=== PATIENT | male | born 1965 | race Caucasian/White ===

== ENCOUNTER 2016-09-08 06:46 | Day surgery (SDC) | payer BC ==
[2016-08-26 09:33] VITALS: BMI 32.0
--- NOTE | 2016-08-26 10:04 | PAT Medication Instructions ---
Service Date Aug 26, 2016. Current Home Medication List Ascorbic Acid (Vitamin C), 500 MG PO BID Pravastatin Sodium (Pravastatin Sodium), 1 TAB PO HS Medication Instructions For Your Scheduled Surgery - Hold the following medications the morning of surgery: Ascorbic Acid (Vitamin C), 500 MG PO BID - Take the following medications as scheduled the night before surgery: Pravastatin Sodium (Pravastatin Sodium), 1 TAB PO HS Ascorbic Acid (Vitamin C), 500 MG PO BID If you have any questions please call us at [phone] or [phone] ( Nancy) or [phone]
[2016-08-26 10:29] LABS: BASO % 0.9 %; BASO ABS # 0.05 K/uL (0-0.2); COMPLETE YES; EOS % 6.1 %; HEMATOCRIT 44.5 % (42-52); LYMPH % 36.3 %; LYMPH ABS # 2.09 K/uL (1.2-3.4); MEAN CELL VOLUME 91.2 fL (80-100); MEAN CORPUSCULAR HEMOGLOBIN 31.4 pg (25-34); MEAN CORPUSCULAR HGB CONC 34.4 g/dl (32-36); MEAN PLATELET VOLUME 9.4 fL (7.4-10.4); MONO % 9.6 %; NEUT % 47.1 %; PLATELET COUNT 213 K/uL (130-400); RED BLOOD COUNT 4.88 M/uL (4.7-6.1); WHITE BLOOD COUNT 5.75 K/uL (4.8-10.8)
[2016-08-26 10:53] LABS: BUN/CREATININE RATIO 17.5 (10-20); CALCIUM 9.1 mg/dl (8.5-10.1); CREATININE 1.2 mg/dl (0.60-1.40); POTASSIUM 4.4 mmol/L (3.5-5.1)
[~2016-09-08] VITALS: Ht 185.4 cm; Wt 110.0 kg
[~2016-09-08 06:46] MED LIST: ASCO1CAP3 PO; CEFAZOLIN 2000 MG/60 ML D5W IV SCH; HEPARIN SOD 5000 UNIT/0.5 ML CARP SQ SCH; LACTATED RINGER'S 1000ML 1,000 ML IV SCH; PRAV80TA2 PO
[2016-09-08 07:10] VITALS: BP 112/74; PULSE 64; TEMP 36.8; O2SAT 96; Ht 185.4 cm; Wt 110.0 kg
[2016-09-08] MEDS ORDERED: HEPARIN SOD 5000 UNIT/0.5 ML CARP ONE (07:50)
[2016-09-08] MEDS ORDERED: SUCCINYLCHOLINE 100MG/5ML SYR IV ONE (07:57)
[2016-09-08] MEDS ORDERED: PROPOFOL IV EMULSION 10 MG/ML 20 ML VIAL IV ONE (07:57)
--- NOTE | 2016-09-08 07:57 | History & Physical Bridge Note ---
H&P Re-Evaluation Bridge Note: I have examined the patient, reviewed the History & Physical and in the interval since the performance of the History & Physical I have noted the following changes of clinical significance: No changes noted
[2016-09-08] MEDS ORDERED: MIDAZOLAM HCL 1 MG/ML 2ML VIAL ONE (07:58)
[2016-09-08] MEDS ORDERED: FENTANYL CITRATE INJ 50 MCG/1 ML 2 ML VIAL ONE ×2 (07:58→08:58)
[2016-09-08] MEDS ORDERED: HYDR-5688 PO (07:58)
[2016-09-08] MEDS ORDERED: CISATRACURIUM BESYLATE IV SOLN 2 MG/ML 10 ML VIAL ONE (08:01)
[2016-09-08] MEDS ORDERED: DEXAMETHASONE SOD INJ 4 MG/ML VIAL ONE (08:47)
[2016-09-08] MEDS ORDERED: ONDANSETRON INJ 2 MG/ML 2 ML VIAL ONE (08:47)
[2016-09-08] MEDS ORDERED: BUPIVACAINE/EPINEPHRINE 0.5% MPF 1:200,000 30 ML VIAL INJ ONE (09:15)
[2016-09-08] MEDS ORDERED: GLYCOPYRROLATE INJ 0.2 MG/ML VIAL ONE (09:18)
[2016-09-08] MEDS ORDERED: SODIUM CHLORIDE 0.9% 1000ML 1,000 ML IV SCH (09:34)
--- NOTE | 2016-09-08 09:37 | [facility] Operative Report ---
Operative Report Operative Date Sep 08, 2016. Pre-Operative Diagnosis Recurrent Right Inguinal Hernia Post-Operative Diagnosis 1. RLQ adhesions 2. recurrent right inguinal hernia. direct. Procedure(s) Performed diagnostic laparoscopy, enterolysis, repair of recurrent RIH with mesh Surgeon Dr. Isaias Reed Electrical Control Assembler Surgeon(s) None Estimated Blood Loss 5ml Findings RLQ adhesions direct RIH Specimens No Specimen Complication(s) None Disposition Recovery Room / PACU I attest to the content of the Intraoperative Record and any orders documented therein. Any exceptions are noted below.
[2016-09-08] MEDS ORDERED: HYDROmorphone INJ 1 MG/ML SYR IV PRN (09:45)
[2016-09-08] MEDS ORDERED: IBUPROFEN 600 MG TAB PO PRN (09:45)
[2016-09-08] MEDS ORDERED: ATROPINE SULFATE 0.1 MG/ML 5ML SYR IV PRN (09:45)
[2016-09-08] MEDS ORDERED: HYDROCODONE/ACETAMOPHEN 5/325MG TAB PO PRN ×2 (09:45)
[2016-09-08] MEDS ORDERED: EpHEDrine SULFATE INJ 50 MG/ML AMP IV PRN (09:45)
[2016-09-08] MEDS ORDERED: KETOROLAC TROMETHAMINE 30 MG/ML VIAL IV. PRN (09:45)
[2016-09-08] MEDS ORDERED: LABETALOL HCL IV 5 MG/ML 20ML IV PRN (09:45)
[2016-09-08] MEDS ORDERED: MoRPHine SULFATE 4 MG/ML 1 ML CARP\\VIAL IV PRN (09:45)
[2016-09-08] MEDS ORDERED: MoRPHine SULFATE 2 MG/ML CARP IV PRN (09:45)
[2016-09-08] MEDS ORDERED: FLUMAZENIL 0.1 MG/1 ML 10 ML VIAL IV PRN (09:45)
[2016-09-08] MEDS ORDERED: PROMETHAZINE HCL INJ 12.5 MG in SODIUM CHLORIDE 0.9% 50ML 50 ML IV PRN (09:45)
[2016-09-08] MEDS ORDERED: ONDANSETRON INJ 2 MG/ML 2 ML VIAL IV PRN (09:45)
[2016-09-08] MEDS ORDERED: NALOXONE HCL 0.4 MG/1 ML VIAL/CARP IV PRN (09:45)
[2016-09-08] MEDS ORDERED: HYDROmorphone INJ 1 MG/ML SYR ONE (09:48)
--- NOTE | 2016-09-08 09:53 | OPERATIVE REPORT ---
DATE OF OPERATION: 09/08/2016 PREOPERATIVE DIAGNOSIS: Right groin pain and recurrent inguinal hernia on ultrasound. POSTOPERATIVE DIAGNOSES 1. Right lower quadrant adhesions. 2. Recurrent direct inguinal hernia. PROCEDURE: Diagnostic laparoscopy with enterolysis and repair of recurrent inguinal hernia with mesh. SURGEON: Dr. Reed. ESTIMATED BLOOD LOSS: Approximately 5 mL. COMPLICATIONS: No immediate complications. ANESTHESIA: General. The patient tolerated the procedure well. OPERATIVE NOTE: After informed consent was obtained, the patient was taken to the operating suite and placed in a supine position. After successful intubation a Carlos catheter was placed. The left arm was tucked and the lower abdomen was shaved and sterilely prepped and draped in the usual fashion. An infraumbilical incision was made with an 11 blade scalpel and carried down through the soft tissue using electrocautery. The anterior rectus fascia was opened using electrocautery and two #0 Vicryl stay sutures were placed. Peritoneum was elevated with hemostats and incised under direct vision using a Metzenbaum scissor. A finger sweep was performed, and a 12 mm [place] trocar was placed. The abdomen was insufflated to 18 mmHg. Laparoscope was inserted and the abdomen was examined 360 degrees. We immediately noted some adhesions in the right lower groin area. I placed 2 left mid abdominal 5 mm trocars under direct vision. The patient was placed in Trendelenburg position and slightly airplaned to the left. The adhesions were stuck right to the area of previous hernia repair. They involved some of the sigmoid colon, as well as mesentery of the small bowel. This was taken down using blunt dissection, as well as small amounts of electrocautery. Once this was cleared, at first I did not think there was a hernia. With some slight dissection, because of the finding on the ultrasound, I was able to find a direct defect on the medial side of the cord structures. There was nothing incarcerated within it. After I dissected out the hernia sac. There was no evidence of an indirect hernia. I used a piece of Surgimesh with silicone barrier as an onlay. I tacked it using a ProTack device staying above the iliopubic tract laterally. I put 1 tack in the pub medially and 1 tack into the abdominal wall anteriorly. This covered the defect nicely. There was adequate hemostasis. No other abnormalities were identified. I watched as the mesh tacoed upon itself as we deflated the abdomen. The trocars were all removed and the abdomen was completely desufflated. We then closed the fascia with 0 Vicryl in a [id number] fashion. The wounds were all irrigated and closed using 4-0 Monocryl. Marcaine was injected around the incisions for postoperative analgesia and skin glue used as a dressing. The patient was awakened, extubated, and transferred to recovery in stable condition. I attest to the content of the Intraoperative Record and any orders documented therein. Any exceptio ns are noted below.
--- NOTE | 2016-09-08 10:13 | Anesthesiology Progress Note ---
Anesthesia Post Op Note Date & Time Sep 08, 2016 at 10:12 Vital Signs Pain Intensity: 0 Vital Signs Past 12 Hours Date Time Temp Pulse Resp B/P Pulse Ox O2 Delivery O2 Flow Rate FiO2 09/08/16 09:58 49 18 09/08/16 09:58 52 18 109/75 87 09/08/16 09:53 55 12 09/08/16 09:53 54 12 110/78 97 09/08/16 09:48 54 15 09/08/16 09:48 53 15 110/73 95 09/08/16 09:43 55 17 09/08/16 09:43 55 17 128/82 97 09/08/16 09:43 36.1 58 18 131/83 96 Mask 10 09/08/16 07:10 36.8 64 18 112/74 96 Room Air Notes Mental Status: alert / awake / arousable, participated in evaluation Pt Amnestic to Procedure: Yes Nausea / Vomiting: adequately controlled Pain: adequately controlled Airway Patency, RR, SpO2: stable & adequate BP & HR: stable & adequate Hydration State: stable & adequate Anesthetic Complications: no major complications apparent
[2016-09-08 10:30] VITALS: BP 119/73; PULSE 54; TEMP 36.9; O2SAT 98
[2016-09-08 11:00] VITALS: BP 107/73; PULSE 56; TEMP 36.4; O2SAT 94
[2016-09-08 11:25] VITALS: BP 111/69; PULSE 53; TEMP 36.9; O2SAT 96
== END 2016-09-08 11:36 | disposition home or self-care (01) ==
LOC: C.ACU 06:46
PROVIDERS: ATTEND Surgery
DX: K40.90 Unilateral inguinal hernia, without obstruction or gangrene, not specified as recurrent (principal); K66.0 Peritoneal adhesions (postprocedural) (postinfection); K57.30 Diverticulosis of large intestine without perforation or abscess without bleeding; R31.9 Hematuria, unspecified; E78.5 Hyperlipidemia, unspecified

== ENCOUNTER → 2017-05-19 | Outpatient (CLI) | payer BC ==
[~2017-05-19] MED LIST changes: -CEFAZOLIN 2000 MG/60 ML D5W IV SCH; -HEPARIN SOD 5000 UNIT/0.5 ML CARP SQ SCH; -LACTATED RINGER'S 1000ML 1,000 ML IV SCH
[2017-05-19 17:06] LABS: CHOLESTEROL/HDL RATIO 4.7
== END | disposition home or self-care (01) ==
LOC: C.LABBFT 13:41
PROVIDERS: ATTEND Physician Assistant Medical
DX: Z00.00 Encounter for general adult medical examination without abnormal findings (principal)

== ENCOUNTER 2024-04-24 07:49 | Inpatient (IN) ==
--- NOTE | 2024-04-16 09:11 | Anesthesiology Consultation ---
Date of Service April 16, 2024 Assessment & Plan Chart Review Chart Review: Acceptable Risk for Surgery and Patient NOT seen in Pre Admission Testing Consults Requested none ASA ASA3 Proposed Anesthesia Anesthesia Type: General History Surgery Operation Date: 04/24/24 10:55 Proposed Procedures p L3-S1 Decompression and Fusion with Spinal Cord Monitoring - Isidro Smith DO Height/Weight Height: 5 ft 11 in Weight: 117.934 kg Allergies Allergy/AdvReac Type Severity Reaction Status Date / Time No Known Drug Allergies Allergy Verified 04/15/24 15:02 Medications Home Medications Medication Instructions Recorded Confirmed Last Taken aspirin 81 mg tablet,delayed 81 mg PO QAM 04/30/19 04/15/24 09/15/19 release omeprazole 20 mg tablet,delayed 20 mg PO QAM 04/15/24 04/15/24 Unknown release rosuvastatin 20 mg tablet 20 mg PO QAM 04/15/24 04/15/24 Unknown Past Medical History Medical History Hx of renal calculi no surgery needed, passed on its own Hx of colonic polyp Pre-diabetes pt denies Spinal stenosis of lumbar region Degenerative disc disease Chronic back pain Osteoarthritis Carotid stenosis, left greater than 75% left external carotid artery stenosis - reason for aspirin (rx by PCP) GERD (gastroesophageal reflux disease) Cervical spinal stenosis Hyperlipidemia Anxiety pt denies ASCVD aorta and carotids obese + tobacco smoker Exercise / Class Metabolic Activity III < 4 Walking/Shop/Light housework Past Family History Family History Grandfather (Paternal) Myocardial infarction Brother Diabetes Hyperlipidemia Mother Diabetes Hypertension Family/Other Cancer Other No family history of adverse response to anesthesia Denies family history of Ovarian cancer Prostate cancer Breast cancer Colorectal cancer Past Surgical History Surgical History History of esophagogastroduodenoscopy (EGD) S/P cervical spinal fusion unsure of levels. done at [facility]. Full ROM History of colonoscopy History of appendectomy H/O inguinal hernia repair right side X3, last hernia repair with mesh Past Anesthesia History No Hx of Anesthesia Complications and No Family Hx of Anesthesia Complications History of PONV No Hx of PONV and No Hx of Motion Sickness Social History Smoking Status: Current every day smoker tobacco type: cigarettes Smoking cigarettes per day: 1 ppd x 40 years (advised on NPO policy) Do You Dip or Chew Tobacco: No Hx Alcohol Use: Yes Alcohol type: beer alcohol intake frequency: a few times a month Hx Substance Use: No substance use type: does not use Testing Electrocardiogram Date: 04/11/24 Findings: + NSR @ (@ 64) Chest X-Ray Date: 04/11/24 Findings: + NAD and + atherosclerosis of thoracic aorta Other Testing 05/13/2019 Neck CTA-LECA -> 75%;JUNIOR-< 25%
[2024-04-24] MEDS: LR 15ML/HR IV SCH (08:30)
[2024-04-24] MEDS: LR 60ML/HR IV SCH (08:30)
[2024-04-24] MEDS: ACETAMINOPHEN 500 MG TAB PO SCH (08:31)
[2024-04-24] MEDS: CeleBREX 200 MG CAP PO SCH (08:31)
[2024-04-24] MEDS: GABAPENTIN 600 MG DOSE PO SCH (08:31)
[2024-04-24] MEDS ORDERED: fentaNYL citrate PF 100 MCG/2 ML VIAL ONE ×2 (08:35→12:33)
[2024-04-24] MEDS ORDERED: SUGAMMADEX SODIUM 200 MG/2 ML VIAL IV ONE (08:35)
[2024-04-24] MEDS ORDERED: LIDOCAINE 2% 2 ML VIAL/AMP(20MG/ML) INFIL ONE (08:35)
[2024-04-24] MEDS ORDERED: PROPOFOL IV EMULSION 10 MG/ML 20 ML VIAL IV ONE (08:35)
[2024-04-24] MEDS ORDERED: ONDANSETRON INJ 2 MG/ML 2 ML VIAL ONE (08:35)
[2024-04-24] MEDS ORDERED: MIDAZOLAM HCL 1 MG/ML 2ML VIAL ONE (08:35)
[2024-04-24] MEDS ORDERED: ROCURONIUM BROMIDE 10 MG/ML 5 ML VIAL IV ONE ×2 (08:35→11:45)
[2024-04-24] MEDS ORDERED: DEXAMETHASONE SOD INJ 4 MG/ML VIAL ONE (08:35)
[2024-04-24] MEDS ORDERED: ONDANSETRON INJ 2 MG/ML 2 ML VIAL IV PRN ×2 (09:05→18:28)
[2024-04-24] MEDS ORDERED: fentaNYL citrate PF 100 MCG/2 ML VIAL IV PRN (09:05)
[2024-04-24] MEDS ORDERED: ePHEDrine sulfate 50 MG/ML AMP IV PRN (09:05)
[2024-04-24] MEDS ORDERED: ATROPINE SULFATE 0.1 MG/ML 10ML SYR IV PRN (09:05)
--- NOTE | 2024-04-24 09:57 | History & Physical Bridge Note ---
Date of Service April 24, 2024 History & Physical Bridge Note I have examined the patient, reviewed the History & Physical and in the interval since the performance of the History & Physical I have noted the following changes of clinical significance: no changes noted
--- NOTE | 2024-04-24 09:58 | History & Physical Report ---
Date of Service April 24, 2024 Assessment & Plan (1) Spinal stenosis of lumbar region: Plan: L3-S1 decompression and fusion History of Present Illness Chief Complaint: Back and bilateral leg pain Primary Care Provider: Rustam Rhoades DO This is a 58-year-old male presents with chronic persistent back and leg pain after failing course of nonoperative care is here for surgical invention. Allergies Allergy/AdvReac Type Severity Reaction Status Date / Time No Known Drug Allergies Allergy Verified 04/24/24 08:21 Home Medications Medication Instructions Recorded Confirmed Type aspirin 81 mg tablet,delayed 81 mg PO QAM 04/30/19 04/24/24 History release omeprazole 20 mg tablet,delayed 20 mg PO QAM 04/15/24 04/24/24 History release rosuvastatin 20 mg tablet 20 mg PO QAM 04/15/24 04/24/24 History Past Med/Surg History Problem List Spinal stenosis of lumbar region Lumbar radiculopathy Lumbar spondylolysis Anterolisthesis of lumbar spine Lumbar degenerative disc disease Greater trochanteric pain syndrome Arthritis of sacroiliac joint of both sides Osteoarthritis of hips, bilateral Olecranon bursitis Constipation Wellness examination Olecranon bursitis, left elbow (Acute) Change in multiple pigmented skin lesions Prediabetes (Chronic) Tubular adenoma of colon (Acute) Papilloma of eyelid (Acute) Left carotid bruit (Acute) Tobacco use disorder 1-1/2 to 2 ppd Hyperlipidemia (Chronic) Medical History Hx of renal calculi Hx of colonic polyp Pre-diabetes Spinal stenosis of lumbar region Degenerative disc disease Chronic back pain Osteoarthritis Carotid stenosis, left GERD (gastroesophageal reflux disease) Cervical spinal stenosis Hyperlipidemia Anxiety Surgical History History of esophagogastroduodenoscopy (EGD) S/P cervical spinal fusion History of colonoscopy History of appendectomy H/O inguinal hernia repair Family History Grandfather (Paternal) Myocardial infarction Brother Diabetes Hyperlipidemia Mother Diabetes Hypertension Family/Other Cancer Other No family history of adverse response to anesthesia Denies family history of Ovarian cancer Prostate cancer Breast cancer Colorectal cancer Social History Smoking Status: Current every day smoker Tobacco Type: Cigarettes Age Started Using Tobacco: 11; packs per day: 1.5; Cigarettes Per Day: 1 ppd x 40 years (advised on NPO policy); Second Hand Exposure: Yes; Do You Dip or Chew Tobacco: No; Tobacco Cessation Education Requested by Patient: No Hx Alcohol Use: Yes Alcohol type: beer Hx Substance Use: No Preferred Language: Korean Communication Ability: Effective Visual Impairment: No Limitations Hearing Ability: Normal Servicenow Administrator Required: No Beliefs That Will Affect Care: None marital status: div Current Living Situation: Significant Other current occupational status: employed current occupation: [employer] Other Information That Helps Us Care for You: No Feels Safe at Home: Yes Safety Concerns: Feels Safe At This Time Childhood Exposure to Second-Hand Smoke: No Diet: regular Dental Care, Regularly: Yes Physical Activity Frequency: Does not Exercise Assistive Devices: None Assistive Devices Comment: dental implant top front x1 Physical Exam Physical Exam: Patient is alert and oriented heart regular in rhythm lungs clear Results & Data Results & Data Vital Signs (Past 12 Hours) Vital Signs Temp Pulse Resp BP Pulse Ox O2 Del Method 04/24/24 08:23 36.6 C 63 18 139/78 96 Room Air
[2024-04-24] MEDS: ceFAZolin 2000MG 2,000 MG/15 ML SYR IV SCH ×2 (10:55→21:03)
[2024-04-24] MEDS: ceFAZolin 330 MG/ML 1 GM VIAL ONE (11:04)
[2024-04-24] MEDS: BUPIVACAINE/EPINEPHRINE 0.25% 1:200,000 30 ML VIAL ONE (11:04)
[2024-04-24] MEDS: FLOSEAL HEMOSTATIC MATRIX 10ML TOP ONE (13:36)
--- NOTE | 2024-04-24 13:49 | Operative Report ---
Post Operative Report Pre & Post Diagnosis Operation Date: 04/24/24 09:35 Pre-Op Diagnosis: Lumbar Disc Herniation with Radiculopathy Spondylolisthesis L5-S1 Lumbar spinal stenosis with neurogenic claudication Obesity Post-Op Diagnosis: Same I identified the patient and participated in the time-out.: Yes Procedure Operation Date: 04/24/24 09:35 Actual Procedures #1 lumbar decompression with bilateral medial facetectomies and foraminotomies L2-L3, L3-L4 L4-5 L5-S1. #2 posterior spinal fusion L3-S1. #3 placed posterior segmental instrumentation L3-S1. #4 interbody fusion L3-L4, L4-5 and L5-S1. #5 placement Spira 15 x 26 mm at L3-L4, 16 x 26 mm x 2 at L4-5 and 14 x 26 mm x 2 at L5-S1. #6 placement locally harvested morselized autograft and posterior gutters. #7 placement infuse collagen sponge combined with Koros in the posterior gutters and os design interbody space. #8 placement of versa wrap over the exposed dura. #9 excision of extradural mass L5-S1. Surgeon Isidro Smith, DO Instructor Industrial Design Kamini Chavira Estimated Blood Loss 1,000 Findings See Below The patient is 511 weighing 119 kg with a BMI in excess of 36 this combined with an EBL of excess of 1000 cc created significant technical difficulty from positioning exposure and the procedure itself and at least 50% increased operative time. I am recommending a modifier 22 on this patient. Specimens None Indications This is a 58-year-old male who presents problems diagnosis of failing since course of nonoperative care is here for surgical invention. Description of Procedure Patient was met with identified informed consent obtained. Patient was then taken to the operative suite underwent ablation placed in a prone position on the Jeremy table on top of the Malachi frame. All bony promises well-padded eyes inspected to ensure no external precipice spinal. This point the lumbar spine was prepped and draped in normal sterile fashion. Sharp dissection with the assistance of Bovie cautery was formed down to and exposing the lamina and transverse processes of L3-L4-L5 and the sacral ala bilaterally. Obvious bilateral pars defect noted L5 bilaterally. I then performed a complete laminectomy of L5 including bilateral medial facetectomies and foraminotomies as well as addressing bilateral extradural facet cyst extending out in the foramen. Then performed a complete laminectomy of L4 with bilateral medial facetectomies and foraminotomies. Then a complete laminectomy of L3 with bilateral medial facetectomies and foraminotomies. This did include excision of foraminal extraforaminal disc herniation on the right. lastly partial laminectomy L2 with bilateral medial facetectomies addressing all subarticular stenosis. Pedicle screws were then placed in L3-L4-L5 and S1 levels bilaterally with assistance of fluoroscopy in the process kelly contoured and placed. By way to transfer approach on the right a discectomy of L5-S1 was performed endplates guided to subcortical bleeding bone and a 14 x 26 mm Spira cage filled os designed tapped in position. Then proceeded to the left transforaminal region at L5-S1 completed the discectomy curetted the endplates to subcortical bleeding bone and placed a second 14 x 26 mm Spira cage with os design into position. I then approached L4-[address] transforaminal approach and right a discectomy performed endplates guided to subcortical bleeding bone and a 16 x 26 mm spiral cage filled with os design tapped in position. Then proceeded to the left transforaminal region at L4-L5. Discectomy performed endplates guided to subcortical bleeding bone and a second 16 x 26 mm Spira cage with os designed tapped into position. Lastly approached L3-L4 by way of a transforaminal approach on the right a complete discectomy was performed endplates guided to subcortical bleeding bone and the 15 x 26 mm Spira cage filled with os designed tapped into position. Rods were then compressed locked into final position bilaterally. The transverse processes of L3-L4-L5 and sacral ala burred to subcortical bleeding bone. Infuse collagen sponge combined with Koros and local autograft placed in posterior lateral gutters. Versa wrap placed over the exposed dura. 15 round THEA drain inserted. The incision was then closed with 1 Vicryl in the fascia 2-0 Vicryl subcutaneously and 4 Monocryl for final skin closure. Steri-Strips and sterile dressing placed. Patient waken taken to PACU stable condition. Please note spinal cord monitoring was utilized at the procedure no changes noted. Charles Chavira was present out the entire procedure and on the patient positioning complex portion of the surgery and final skin closure. Im ordering 20 grams of Triple Beyer Collagen Powder ([id number]) to treat an incision wound that was caused by a spine procedure. The incision is approximately 2 cm(W) x 4 cm(L) into the joint (D) in size and is a full thickness wound. Triple Beyer collagen comes in 1 gram packets so 20 packets were ordered. Given the size of the wound, with light to moderate exudate I chose to order a 20 day supply. The patient will be provided instructions for proper application of the collagen wound kit. The patient will be asked to apply the collagen powder daily and then cover it with sterile dressings dispensed. Collagen was selected as I expect the collagen to attract monocytes and fibroblasts, act as a sacrificial substrate for MMPs, and ultimately proved a matrix for tissue and vessel growth. The collagen will act as a primary dressing in this scenario. It is medically necessary for proper healing of these wounds to improve bioavailability and contact with each wound surface, this is also to help prevent infection of wounds and promote healing ultimately leading to a better healing outcome and limit the risk of infection... I attest to the content of the Intraoperative Record and any orders documented therein. Any exceptions are noted below.
--- NOTE | 2024-04-24 14:00 | Fluoroscopy Report ---
FL lumbar spine 2-3V CLINICAL HISTORY: L3-S1 DECOMPRESSION AND FUSION COMPARISON STUDY: Lumbar spine MRI February 21, 2024. FLUOROSCOPY TIME: 32 seconds. Ka,r: 30.12 mGy FLUOROSCOPIC IMAGES: 3 FINDINGS: Fluoroscopy was provided during L3-S1 decompression and fusion with discectomy. Hardware is intact. There are no unexpected radiopaque foreign bodies. IMPRESSION: Fluoroscopy was provided during L3-S1 decompression and fusion. ACT 112: Negative or not required by law. Electronically signed by: Bright Smith M.D. 04/24/2024 1:59 PM
[2024-04-24] MEDS ORDERED: PHENYLEPHRINE 100MCG/ML 5ML SYR IV PRN (14:46)
[2024-04-24] MEDS ORDERED: ALBUMIN HUMAN 5% 12.5 GM/250 ML VIAL IV ONE (14:51)
[2024-04-24] MEDS: ALBUMIN 5% 250 ML IV ONE ×3 (14:56→18:46)
[2024-04-24] MEDS ORDERED: DO NOT ADMINISTER PNEUMOCOCCAL VACCINE PRN (18:28)
[2024-04-24] MEDS ORDERED: DO NOT ADMINISTER FLU VACCINE PRN (18:28)
[2024-04-24] MEDS ORDERED: PROMETHAZINE 12.5 MG/50.5 ML BAG IV PRN (18:28)
[2024-04-24] MEDS ORDERED: METOCLOPRAMIDE HCL INJ 5 MG/ML 2 ML VIAL IV PRN (18:28)
[2024-04-24] MEDS ORDERED: HYDROmorphone INJ 1 MG/ML SYRINGE IV PRN (18:28)
[2024-04-24] MEDS ORDERED: diphenhydrAMINE Capsule 25 MG CAP PO PRN (18:28)
[2024-04-24] MEDS ORDERED: traMADol HCL 50 MG TABLET PO PRN (18:28)
[2024-04-24] MEDS ORDERED: ONDANSETRON 4 MG OD TAB PO PRN (18:28)
[2024-04-24] MEDS ORDERED: ALUMINUM/MAGNESIUM SUSP 30 ML UDC PO PRN (18:28)
[2024-04-24] MEDS ORDERED: HYDROmorphone INJ 0.5 MG/0.5 ML SYR IV PRN (18:28)
[2024-04-24] MEDS ORDERED: ACETAMINOPHEN 1,000 MG/100 ML VIAL IV PRN (18:28)
[2024-04-24] MEDS ORDERED: MAGNESIUM HYDROXIDE SUSP 30 ML UDC PO PRN (18:28)
[2024-04-24] MEDS ORDERED: bisacodyL 10 MG SUPP PR PRN (18:28)
[2024-04-24] MEDS ORDERED: NALOXONE HCL 0.4 MG/1 ML VIAL/CARP IV PRN (18:28)
[2024-04-24] MEDS ORDERED: LORazepam 0.5 MG TAB PO PRN (18:28)
[2024-04-24] MEDS ORDERED: FAMOTIDINE 20 MG TAB PO PRN (18:28)
[2024-04-24] MEDS ORDERED: LORazepam 2 MG/1 ML VIAL IV PRN (18:28)
[2024-04-24] MEDS ORDERED: SOD PHOSPHATE/SOD BIPHOSPHATE ENEMA 132 ML BTL PR PRN (18:28)
[2024-04-24] MEDS: LACTATED RINGER'S 1,000 ML IV SCH (18:50)
--- NOTE | 2024-04-24 19:20 | Anesthesiology Progress Note ---
Date of Service April 24, 2024 Anesthesia Post Procedure Vital Signs Vital Signs: Temp Pulse Pulse Resp BP Pulse Ox O2 Del Method 04/24/24 18:55 36.6 C 91 H 16 144/74 H 96 Room Air 04/24/24 18:21 36.4 C L 73 16 128/79 97 Room Air 04/24/24 18:05 68 18 120/67 96 Room Air 04/24/24 17:55 67 16 103/67 96 Room Air 04/24/24 17:45 75 14 110/57 L 97 Room Air 04/24/24 17:35 78 18 116/73 98 Room Air 04/24/24 17:30 71 20 106/65 96 Room Air 04/24/24 17:25 67 16 99/62 L 97 Room Air 04/24/24 17:15 36.3 C L 75 14 102/66 96 Room Air 04/24/24 17:05 73 13 97/66 L 96 Room Air 04/24/24 16:55 66 12 91/59 L 96 Room Air 04/24/24 16:45 75 16 95/61 L 97 Room Air 04/24/24 16:40 75 16 87/52 L 97 Room Air 04/24/24 16:35 77 14 102/62 95 Room Air 04/24/24 16:30 93/62 L 04/24/24 16:25 71 18 100/67 96 Room Air 04/24/24 16:15 77 13 100/60 95 Room Air 04/24/24 16:10 92/57 L 04/24/24 16:05 68 16 89/60 L 93 Room Air 04/24/24 15:55 71 12 98/60 L 95 Room Air 04/24/24 15:50 73 16 86/63 L 94 Room Air 04/24/24 15:45 67 14 93/60 L 96 Room Air 04/24/24 15:40 77 14 113/68 96 Room Air 04/24/24 15:35 66 13 98/60 L 96 Room Air 04/24/24 15:30 97/66 L 04/24/24 15:25 76 13 98/73 L 98 Nasal Cannula 04/24/24 15:20 77 17 98/74 L 98 Nasal Cannula 04/24/24 15:15 77 18 91/62 L 99 Nasal Cannula 04/24/24 15:05 74 19 109/70 99 Nasal Cannula 04/24/24 14:55 71 16 96/65 L 95 Nasal Cannula 04/24/24 14:50 95/63 L 04/24/24 14:45 66 16 90/62 L 96 Nasal Cannula 04/24/24 14:40 84/58 L 04/24/24 14:35 36.3 C L 75 18 96/62 L 95 Nasal Cannula 04/24/24 14:25 84 17 112/87 96 Nasal Cannula 04/24/24 14:15 77 15 102/61 96 Nasal Cannula 04/24/24 14:09 36.2 C L 74 14 106/66 95 Nasal Cannula 04/24/24 08:23 36.6 C 63 18 139/78 96 Room Air O2 Flow Rate 04/24/24 18:55 04/24/24 18:21 04/24/24 18:05 04/24/24 17:55 04/24/24 17:45 04/24/24 17:35 04/24/24 17:30 04/24/24 17:25 04/24/24 17:15 04/24/24 17:05 04/24/24 16:55 04/24/24 16:45 04/24/24 16:40 04/24/24 16:35 04/24/24 16:30 04/24/24 16:25 04/24/24 16:15 04/24/24 16:10 04/24/24 16:05 04/24/24 15:55 04/24/24 15:50 04/24/24 15:45 04/24/24 15:40 04/24/24 15:35 04/24/24 15:30 04/24/24 15:25 2 04/24/24 15:20 2 04/24/24 15:15 2 04/24/24 15:05 2 04/24/24 14:55 2 04/24/24 14:50 04/24/24 14:45 2 04/24/24 14:40 04/24/24 14:35 4 04/24/24 14:25 4 04/24/24 14:15 4 04/24/24 14:09 4 04/24/24 08:23 Pain Intensity Back: Pain Intensity: 2 Transfer of Care Handoff Completed per policy Notes Mental Status: alert / awake / arousable Patient Amnestic to Procedure: Yes Nausea / Vomiting: adequately controlled Pain: adequately controlled Airway Patency, RR, SpO2: stable & adequate BP & HR: stable & adequate Hydration State: stable & adequate Anesthetic Complications: no major complications apparent and Pt Satisfied with anesthetic care
[2024-04-24] MEDS: DOCUSATE SODIUM/SENNA 50/8.6MG TAB PO SCH (21:15)
[2024-04-24] MEDS: ACETAMINOPHEN 500 MG TAB PO PRN (21:15)
[2024-04-24] MEDS: oxyCODONE HCL IR 5 MG TAB (IMMEDIATE RELEASE) PO PRN (23:33)
[2024-04-25] MEDS: POLYETHYLENE (MIRALAX) 17 GM PACK PO SCH (06:35)
[2024-04-25] MEDS: PANTOprazole 40 MG TAB PO SCH (07:54)
[2024-04-25] MEDS: ASPIRIN 81 MG ECTAB PO SCH (07:54)
[2024-04-25] MEDS: dexAMETHasone 6 MG in SYRINGE 0 ML IV SCH (07:54)
[2024-04-25] MEDS: ROSUVASTATIN CALCIUM 20 MG TAB PO SCH (07:54)
[2024-04-25 08:34] LABS: Basophils # (auto) 0.01 K/uL (0.00-0.20); Basophils % (auto) 0.1 %; Hematocrit (blood only) 32.5 % (42.0-52.0); Hemoglobin 10.9 g/dl (14.0-18.0); Immature Granulocytes # (auto) 0.11 K/uL (0.01-0.20); Immature Granulocytes % (auto) 0.7 %; Lymphocytes # (auto) 1.86 K/uL (1.20-3.40); Lymphocytes % (auto) 11.7 %; Mean Corpuscular Hemoglobin 30.9 pg (25.0-34.0); Mean Corpuscular Hgb Conc 33.5 g/dL (32.0-36.0); Mean Corpuscular Volume 92.1 fL (80.0-100.0); Mean Platelet Volume 9.5 fL (9.4-12.4); Monocytes # (auto) 1.23 K/uL (0.11-0.59); Monocytes % (auto) 7.7 %; Neutrophils # (auto) 12.73 K/uL (1.40-6.50); Neutrophils % (auto) 79.8 %; Platelet Count 185 K/uL (130-400); RDW Coefficient of Variation 12.6 % (11.5-14.5); RDW Standard Deviation 42.5 fL (36.4-46.3); Red Blood Count 3.53 M/uL (4.70-6.10); White Blood Count 15.94 K/ul (4.8-10.8)
[2024-04-25 08:44] LABS: BUN Creatinine Ratio 16.2 (10-20); Calcium 8.7 mg/dl (8.6-10.3); Creatinine Clr Calc Pharmacy 105.4 ml/min; Est GFR (African American) 96.2 ml/min; Potassium 4.3 mmol/L (3.5-5.1)
--- NOTE | 2024-04-25 08:46 | Orthopedic Progress Note ---
Date of Service April 25, 2024 Assessment & Plan (1) Spinal stenosis of lumbar region: Plan: Juan M is postoperative day 1 status post L3-S1 decompression and fusion. Maintain THEA drain. DVT prophylaxis is in the form teds and SCDs. Continue with pain control. Work on aggressive bowel regimen. Will start physical therapy and ambulation today. Anticipate discharge home within the next couple of days. Admission and Anticipated Discharge Date Admission Date: April 24, 2024 Subjective Juan M is postoperative day 1 status post L3-S1 decompression and fusion. He had an uneventful evening. Pain is improved. THEA drain output last shift was 160 cc. H&H are 10.9 and 36.3 this morning. Review of Systems Review of Systems: All systems reviewed & are unremarkable except as noted in HPI & below Physical Exam Physical Exam: He sitting up in a chair eating breakfast in no acute distress alert and oriented x 3 lumbar dressing is clean dry and intact with functioning THEA drain calf soft nontender bilateral lower extremities strength intact bilateral lower extremities Results & Data Vital Signs (Past 12 Hours) Vital Signs Temp Pulse Resp BP BP Pulse Ox O2 Del Method 04/25/24 08:02 36.8 C 69 18 110/75 94 Room Air 04/25/24 03:39 36.5 C 84 18 127/66 97 Room Air 04/24/24 23:20 36.3 C L 88 18 100/62 95 Room Air 04/24/24 21:20 36.5 C 75 18 116/70 95 Room Air
--- NOTE | 2024-04-25 23:28 | Hospitalist Consultation ---
Date of Consultation April 25, 2024 Assessment & Plan (1) Spinal stenosis of lumbar region: Per primary service DVT proph per primary service. Acute blood loss anemia. Hemoglobin dropped from 13 to 10.9 will continue to monitor. vitals are stable. (2) Hyperlipidemia: Resume home meds History of Present Illness Reason for Consultation: medical management Attending Physician: Isidro Smith, History of Present Illness 58 yo male with PMH of dyslipidemia is hopsitlaized for a lumbar disc herniation with radiculopathy/ spondylolisthesis L5-S1. Patient had the following done on: Actual Procedures #1 lumbar decompression with bilateral medial facetectomies and foraminotomies L2-L3, L3-L4 L4-5 L5-S1. #2 posterior spinal fusion L3-S1. #3 placed posterior segmental instrumentation L3-S1. #4 interbody fusion L3-L4, L4-5 and L5-S1. #5 placement Spira 15 x 26 mm at L3-L4, 16 x 26 mm x 2 at L4-5 and 14 x 26 mm x 2 at L5-S1. #6 placement locally harvested morselized autograft and posterior gutters. #7 placement infuse collagen sponge combined with Koros in the poste rior gutters and os design interbody space. #8 placement of versa wrap over the exposed dura. #9 excision of extradural mass L5-S1. Allergies Allergy/AdvReac Type Severity Reaction Status Date / Time No Known Drug Allergies Allergy Verified 04/24/24 08:21 Home Medications Medication Instructions Recorded Confirmed Type aspirin 81 mg tablet,delayed 81 mg PO QAM 04/30/19 04/24/24 History release omeprazole 20 mg tablet,delayed 20 mg PO QAM 04/15/24 04/24/24 History release rosuvastatin 20 mg tablet 20 mg PO QAM 04/15/24 04/24/24 History Patient History Medical History Hx of renal calculi no surgery needed, passed on its own Hx of colonic polyp Pre-diabetes pt denies Spinal stenosis of lumbar region Degenerative disc disease Chronic back pain Osteoarthritis Carotid stenosis, left greater than 75% left external carotid artery stenosis - reason for aspirin (rx by PCP) GERD (gastroesophageal reflux disease) Cervical spinal stenosis Hyperlipidemia Anxiety pt denies Surgical History History of esophagogastroduodenoscopy (EGD) S/P cervical spinal fusion unsure of levels. done at [facility]. Full ROM History of colonoscopy History of appendectomy H/O inguinal hernia repair right side X3, last hernia repair with mesh Family History Grandfather (Paternal) Myocardial infarction Brother Diabetes Hyperlipidemia Mother Diabetes Hypertension Family/Other Cancer Other No family history of adverse response to anesthesia Denies family history of Ovarian cancer Prostate cancer Breast cancer Colorectal cancer Social History Smoking Status: Current every day smoker Tobacco Type: Cigarettes Age Started Using Tobacco: 11; packs per day: 1.5; Cigarettes Per Day: 1 ppd x 40 years (advised on NPO policy); Second Hand Exposure: Yes; Do You Dip or Chew Tobacco: No; Tobacco Cessation Education Requested by Patient: No Hx Alcohol Use: Yes Alcohol type: beer Hx Substance Use: No Preferred Language: Turkish Communication Ability: Effective Visual Impairment: No Limitations Hearing Ability: Normal Hearing And Speech Assistant Required: No Beliefs That Will Affect Care: None marital status: div Current Living Situation: Significant Other current occupational status: employed current occupation: [employer] Other Information That Helps Us Care for You: No Feels Safe at Home: Yes Safety Concerns: Feels Safe At This Time Childhood Exposure to Second-Hand Smoke: No Diet: regular Dental Care, Regularly: Yes Physical Activity Frequency: Does not Exercise Assistive Devices: None Assistive Devices Comment: dental implant top front x1 Review of Systems Constitutional: no fever and no sweats Eyes: no blind spots and no discharge Ear, Nose, Mouth, Throat: no ear pain and no tinnitus Respiratory: no cough and no dyspnea Cardiovascular: no chest pain Gastrointestinal: no abdominal pain Genitourinary: no dysuria Musculoskeletal: + back pain Integumentary: no acne Neurologic: no paralysis Psychiatric: no behavioral changes Endocrine: no fatigue Hematologic / Lymphatic: no easy bleeding Allergy / Immunological: no GI upset with certain foods Physical Exam Constitutional: WD/WN, vitals as above Eyes: PERRL, conjunctivae normal, anicteric sclerae ENMT: external ear and nose normal, oropharynx normal Neck: trachea midline, no thyromegaly Respiratory: normal respiratory effort, lungs clear to auscultation Cardiovascular: RRR, no murmur, no edema Gastrointestinal (Abdomen): normal bowel sounds, soft, nontender, no hepatosplenomegaly (THEA drain noted.) Musculoskeletal: no cyanosis or clubbing, extremities motor strength 5/5 Skin: no rashes, warm and dry Neurologic: PERRL, EOMI, accommodation nl, no face palsy, no dysarthria Psychiatric: A+Ox3, euthymic affect Lymphatic: no cervical or axillary lymphadenopathy Results & Data Results & Data Vital Signs (Past 12 Hours) Vital Signs Temp Pulse Resp BP Pulse Ox O2 Del Method 04/25/24 20:02 36.5 C 75 16 118/66 96 Room Air PG Care Time/CCT Total # of Minutes Spent Total Time Spent with Patient: Total time spent is greater than 50% in coordination of care (as documented) at patient's floor/unit and/or counseling patient: Coding Level of Care Code 62356 IN/OBS CONSULT LVL 3,45M Diagnoses Spinal stenosis of lumbar region M48.061 Hyperlipidemia E78.5
[2024-04-26 06:43] LABS: Hematocrit (blood only) 29.4 % (42.0-52.0); Mean Corpuscular Hemoglobin 31.1 pg (25.0-34.0); Mean Corpuscular Volume 91.3 fL (80.0-100.0); Mean Platelet Volume 9.9 fL (9.4-12.4); Platelet Count 174 K/uL (130-400); RDW Coefficient of Variation 12.7 % (11.5-14.5); RDW Standard Deviation 42.2 fL (36.4-46.3); Red Blood Count 3.22 M/uL (4.70-6.10); White Blood Count 14.44 K/ul (4.8-10.8)
[2024-04-26 06:44] LABS: BUN Creatinine Ratio 18.1 (10-20); Calcium 8.9 mg/dl (8.6-10.3); Creatinine Clr Calc Pharmacy 99.4 ml/min; Est GFR (African American) 89.6 ml/min; Est GFR (Non-African American) 77.3 ml/min; Potassium 4.3 mmol/L (3.5-5.1)
--- NOTE | 2024-04-26 14:45 | Orthopedic Progress Note ---
Date of Service April 26, 2024 Assessment & Plan (1) Spinal stenosis of lumbar region: Plan: At this time we will continue physical therapy monitor his THEA output anticipate discharge home tomorrow. Admission and Anticipated Discharge Date Admission Date: April 24, 2024 Subjective Patient's back pain is controlled leg symptoms markedly improved Physical Exam Physical Exam: On exam patient is ambulating the halls. He is comfortable. Distracted testing. Results & Data Vital Signs (Past 12 Hours) Vital Signs Temp Pulse Resp BP Pulse Ox O2 Del Method 04/26/24 07:08 36.4 C L 64 18 116/73 97 Room Air Queries Orthopedic Spine Acute Posthemorrhagic Anemia: Yes Obesity: Yes
--- NOTE | 2024-04-26 22:12 | Hospitalist Progress Note ---
Date of Service April 26, 2024 Assessment & Plan (1) Spinal stenosis of lumbar region: Plan: Per primary service DVT proph per primary service. Acute blood loss anemia. Hemoglobin dropped from 13 to 10.9 on 04/25 Hemoglobin is 10 on 04/26 will continue to monitor. vitals are stable. (2) Hyperlipidemia: Plan: Resume home meds Plan Will sign off case. we will continue to monitor blood work while patient is in house. Thank you for allowing us to care for your patient. Admission and Anticipated Discharge Date Admission Date: April 24, 2024 Subjective Patient reports to be doing well. He has ambulated He does not feel weak, fatigued or SOB. He hashad bowel movements Review of Systems Review of Systems: All systems reviewed & are unremarkable except as noted in HPI & below Physical Exam Constitutional: WD/WN, vitals as above Eyes: PERRL, conjunctivae normal, anicteric sclerae ENMT: external ear and nose normal, oropharynx normal Neck: trachea midline, no thyromegaly Respiratory: normal respiratory effort, lungs clear to auscultation Cardiovascular: RRR, no murmur, no edema Gastrointestinal (Abdomen): normal bowel sounds, soft, nontender, no hepatosplenomegaly (THEA drain noted.) Musculoskeletal: no cyanosis or clubbing, extremities motor strength 5/5 Skin: no rashes, warm and dry Neurologic: PERRL, EOMI, accommodation nl, no face palsy, no dysarthria Psychiatric: A+Ox3, euthymic affect Lymphatic: no cervical or axillary lymphadenopathy Results & Data Results & Data Vital Signs (Past 12 Hours) Vital Signs Temp Pulse Resp BP Pulse Ox O2 Del Method 04/26/24 19:30 36.2 C L 64 19 132/77 98 Room Air 04/26/24 15:19 36.6 C 64 18 122/57 L 96 Room Air PG Care Time/CCT Total # of Minutes Spent Total Time Spent with Patient: Total time spent is greater than 50% in coordination of care (as documented) at patient's floor/unit and/or counseling patient: Coding Level of Care Code 99978 SUB INP/OBS CARE 2/35MIN Diagnoses Spinal stenosis of lumbar region M48.061 Hyperlipidemia E78.5
[2024-04-27] MEDS: hydrOXYzine HCl 25 MG TAB PO PRN (02:06)
[2024-04-27 08:07] VITALS: PULSE 63; RESP 18; TEMP 98.2; O2SAT 97
[2024-04-27 09:01] LABS: Hematocrit (blood only) 31.6 % (42.0-52.0); Hemoglobin 10.8 g/dl (14.0-18.0); Mean Corpuscular Hemoglobin 31.4 pg (25.0-34.0); Mean Corpuscular Hgb Conc 34.2 g/dL (32.0-36.0); Mean Corpuscular Volume 91.9 fL (80.0-100.0); Platelet Count 194 K/uL (130-400); RDW Coefficient of Variation 12.6 % (11.5-14.5); RDW Standard Deviation 42.4 fL (36.4-46.3); Red Blood Count 3.44 M/uL (4.70-6.10); White Blood Count 14.54 K/ul (4.8-10.8)
[2024-04-27 09:18] LABS: BUN Creatinine Ratio 18.3 (10-20); Calcium 9.2 mg/dl (8.6-10.3); Creatinine Clr Calc Pharmacy 100.4 ml/min; Est GFR (African American) 90.7 ml/min; Est GFR (Non-African American) 78.2 ml/min; Potassium 4.2 mmol/L (3.5-5.1)
--- NOTE | 2024-04-27 09:52 | Discharge Summary ---
Date of Service April 27, 2024 Admission HPI Per Admitting Provider This is a 58-year-old male presents with chronic persistent back and leg pain after failing course of nonoperative care is here for surgical invention. Principal Diagnosis Lumbar spinal stenosis with neurogenic claudication Discharge Data Allergies Allergy/AdvReac Type Severity Reaction Status Date / Time No Known Drug Allergies Allergy Verified 04/24/24 08:21 Consultations 04/24/24 18:28 Consult Hospitalist Routine Procedures Performed Operation Date: 04/24/24 09:35 Actual Procedures p L3-S1 Decompression and Fusion, Spinal Cord Monitoring(Not Applicable) - Isidro Smith DO Ordered Studies 04/24/24 09:35 FL lumbar spine 2-3V Routine Hospital Course (1) Spinal stenosis of lumbar region: Patient went multilevel lumbar decompression fusion tolerated this well was taken to orthopedic for postoperative. Postop he progressed appropriately. Marked improvement of his leg pain. Extra strength testing. Pain well- controlled. Subsidy discharged home. Patient will be discharged home with his drain and follow-up in the office for removal. Discharge orders instructions from the chart for further review. Total Time Total Time Spent Total Time Spent (In Minutes): 20 minutes Discharge Plan Discharge Items Patient Disposition: Home - Self-Care Reason For Visit: Lumbar Disc Herniation with Radiculopathy, Isthmic Discharge Diagnosis: Lumbar spinal stenosis with neurogenic claudication Activity: As commented below Non-emergency contact: Primary Care Provider Call non-emergency contact if: you have any medication questions Follow-up/Referrals: Rustam Rhoades DO [Primary Care Provider] - Diet: Regular Addtl Attending Provider Instructions: ACTIVITY RECOMMENDATIONS: SELF CARE INSTRUCTIONS AFTER THORACIC/LUMBAR FUSIONS 1. You may walk to your tolerance. It is good exercise for your legs and back. Expect some back and intermittent leg aches and pains. 2. You may perform "counter-top" level activities (make a sandwich, gayle with a project, etc.). 3. No bending or lifting of more than 10 pounds or back twisting of any nature (roll like a log when turning in bed). 4. You may ride in a car for 20-30 minutes at a time. No driving until after your first visit with your doctor. 5. Frequent changes of position and restricting sitting to 30 minutes at a time will help limit the amount of back spasms and stiffness you may experience. 6. You may discontinue the use of ambulatory aids (cane, crutches, etc.) once your strength and confidence allow. 7. You may mill machinist the shower and let water strike your incision when you arrive home at least once daily. Do not take a tub bath, sit in a hot tub or go into a swimming pool until after your first recheck in the office. SPECIAL CARE INSTRUCTIONS: VERY IMPORTANT TO READ AND REVIEW A. Your surgical incision has been closed with a cosmetic suture under the skin that will dissolve in about 6 weeks. In 14 days, you can use a pair of clean scissors and cut the suture that is left outside of the skin at the ends of your incision. 1. The small skin tapes can be removed 7 days after surgery if they have not fallen off by that point. 2. You may keep the wound open to air as much as possible to promote healing after post-op day number 5 unless told otherwise by your doctor. 3. If you think the wound looks like it is becoming infected (redness or worsening drainage) and/or you are experiencing fever, chill or worsening back pain and muscle spasms, contact the office so that we may evaluate you as soon as possible. B. Complications are uncommon, but please contact us if you have any signs or symptoms of: 1. wound infection (fever higher than 102.5 degrees F, redness, separation of wound, drainage, or increasing pain from the incision) 2. blood clots in legs (pain, swelling, redness and warmth in legs) 3. urinary tract infection (fever higher than 102.5 degrees F, burning upon urination or increased frequency of urination) 4. nerve problems (inability to walk on your toes or heels, numbness, loss of bowel or bladder control) 5. any other symptoms that concern you C. Please call the office at if you have any concerns or questions about your operation or recovery. D. No smoking! Smoking drastically decreases the chance of a solid fusion. E. Do not take any anti-inflammatory medications (Indocin, Advil, Motrin, Aspirin, Naprosyn, etc.) as these may inhibit the chance of a solid fusion. Tylenol is okay to take for pain. MANAGING PAIN AFTER SPINAL SURGERY 1. Narcotic medication is intended for short-term use and will be provided for surgical pain. Surgical pain usually lasts for a period of 4-6 weeks. Narcotic medication includes Percocet, Vicodin, Darvocet, Tylenol #3 or Lortab. 2. Longer-term pain is more appropriately treated with non-narcotic medication such as Tylenol ES. 3. Muscle spasm is not appropriately treated with narcotics. Muscle relaxers such as Soma, Flexeril or Skelaxin can be used along with Tylenol ES. 4. Remember that we all live with some "aches and pains". This is not unusual or uncommon after an injury or as we get older. a. Back pain is expected and may include muscle spasms for 4 to 6 weeks after surgery. The pain should gradually improve. If the pain worsens for no apparent reason, please contact the office. b. Intermittent leg pain may also be experienced and should not be concerned about unless it worsens for no apparent reason. If so, please contact the office. 5. We will provide appropriate medication within the normal guidelines of their prescribed use. We will also be very cautious and aware of potential abuse and extended duration of patients' medication needs. a. Pain medications are for your comfort and to assist with sleep and rest so that the tissue can heal. They are not provided in order to return to normal activity and should not be used through the day. To do so or worsening pain at night can result from ongoing tissue damage and development of tolerance to the prescribed medicine. 6. Please allow 2-3 days to process refills. Prescriptions will not be mailed but must be picked up at the office. FOLLOW UP VISIT: Keep your scheduled follow-up appointment. Any questions, please call the office at . Pending Studies at Discharge: No Stand-Alone Forms: [facility], Smoking Cessation Medications and DC Order Prescriptions: New tramadol 50 mg tablet 50 mg PO Q6H PRN (Reason: pain, moderate) Qty: 30 0RF oxycodone 5 mg tablet 5 mg PO Q6H PRN (Reason: pain) Qty: 30 0RF Continued aspirin 81 mg tablet,delayed release (DR/EC) 81 mg PO QAM omeprazole 20 mg Tablet,Delayed Release (Dr/Ec) 20 mg PO QAM rosuvastatin 20 mg tablet 20 mg PO QAM Discharge Orders: Discharge Order (Routine); Ordered 04/27/24 Ordered By: Isidro Smith Admission Data Admit Date/Time: 04/24/24 13:53 Attending Provider: Isidro Smith Admit Provider: Isidro Smith Primary Care Provider: Rustam Rhoades Other Providers: Ash Hutchinson
[2024-04-27 10:28] VITALS: BP 100/62
== END 2024-04-27 11:00 | disposition home or self-care (01) | DRG 454 ==
LOC: ASU 07:49 → 3W 13:53